=== PATIENT | female | born 1975 | race African-American/Black ===

== ENCOUNTER → 2024-06-21 | Emergency (ER) | payer OTHER ==
[~2024-06-21] VITALS: Ht 154.9 cm; Wt 50.0 kg
[~2024-06-21] MED LIST: FAMO20 PO
[2024-06-21 06:52] VITALS: TEMP 97.2
[2024-06-21] MEDS: SODIUM CHLORIDE 0.9% 1,000 ML IV ONE (07:48)
[2024-06-21] MEDS: PANTOPRAZOLE SODIUM 40 MG/VIAL IVP ONE (07:49)
[2024-06-21] MEDS: ONDANSETRON HCL 4 MG/2 ML VIAL IVP ONE (07:49)
[2024-06-21 08:09] LABS: ANION GAP 14 mmol/L (8-16); CALCIUM, TOTAL 9.2 mg/dL (8.8-10.5); CARBON DIOXIDE 26 mmol/L (22-29); CHLORIDE 97 mmol/L (98-107); CREATININE 0.78 mg/dL (0.60-1.30); GLOMERULAR FILTR. RATE CALC > 60 mL/min (>60); GLUCOSE,RANDOM 126 mg/dL (70-110); POTASSIUM 3.1 mmol/L (3.5-5.1); SODIUM SERUM 137 mmol/L (136-145); UREA NITROGEN, BLOOD 21 mg/dL (7-18)
[2024-06-21 08:14] LABS: BASOPHILS % (AUTO) 0.7 % (0.0-2.0); EOSINOPHILS % (AUTO) 0.9 % (1.0-6.0); HEMATOCRIT 40.2 % (36-46); HEMOGLOBIN 13.4 g/dL (12.0-16.0); LYMPHOCYTES # (AUTO) 1.3 K/uL (1.0-4.8); LYMPHOCYTES % (AUTO) 33.1 % (22.0-44.0); MEAN CORPUSCULAR HEMOGLOBIN 33.4 pg (26.0-34.0); MEAN CORPUSCULAR HGB CONC 33.3 G/dL (31.0-37.0); MEAN CORPUSCULAR VOLUME 100 fL (80-100); MONOCYTES # (AUTO) 0.3 K/uL (0.1-1.0); MONOCYTES % (AUTO) 6.6 % (2.0-9.0); NEUTROPHILS # (AUTO) 2.3 K/uL (1.8-7.7); NEUTROPHILS % (AUTO) 58.7 % (40.0-70.0); PLATELET COUNT (AUTO) 316 K/uL (150-450); RED CELL DISTRIBUTION WIDTH 14.7 % (11.5-14.5)
[2024-06-21 08:16] LABS: ALANINE AMINOTRANSFERASE 37 U/L (12-78); ALBUMIN 3.7 g/dL (3.4-5.0); ALKALINE PHOSPHATASE 160 U/L (46-116); ASPARTATE AMINOTRANSFERASE 80 U/L (15-37); BILIRUBIN,TOTAL 0.5 mg/dL (0.1-1.0); TOTAL PROTEIN, SERUM 7.5 g/dL (6.4-8.2)
[2024-06-21] MEDS: POTASSIUM CHLORIDE 20 MEQ ER TABLET PO ONE (08:41)
[2024-06-21] MEDS: KETOROLAC TROMETHAMINE 30 MG/ML VIAL IVP ONE (09:47)
[2024-06-21] MEDS: MAG HYDROX/ALUMINUM HYD/SIMETH ES 30 ML SUSPENSION UDCUP PO ONE (09:47)
[2024-06-21 10:00] LABS: LIPASE 81 U/L (16-77)
[2024-06-21 11:25] VITALS: BP 105/67; PULSE 84; RESP 16; O2SAT 97
== END | disposition still patient (30) ==
LOC: EMS 06:42
DX: K85.90 Acute pancreatitis without necrosis or infection, unspecified (principal)
CPT/HCPCS: 80048; 80076; 83690; 85025; 36415; 99284; 96361; 96374; 96375; J1885; J2405; C9113; J7030

== ENCOUNTER 2024-06-22 03:57 | Inpatient (IN) | payer OTHER ==
[~2024-06-22] VITALS: Ht 154.9 cm; Wt 45.5 kg
[2024-06-22] MEDS: SODIUM CHLORIDE 0.9% 1,000 ML IV ONE ×2 (04:21→09:20)
[2024-06-22] MEDS: ONDANSETRON HCL 4 MG/2 ML VIAL IVP ONE ×2 (04:21→06:56)
[2024-06-22] MEDS: KETOROLAC TROMETHAMINE 30 MG/ML VIAL IVP ONE (04:21)
[2024-06-22] MEDS: LORazepam 2 MG/ML VIAL IVP ONE (04:23)
[2024-06-22 04:27] LABS: BASOPHILS % (AUTO) 0.5 % (0.0-2.0); EOSINOPHILS % (AUTO) 0.8 % (1.0-6.0); HEMATOCRIT 43.5 % (36-46); HEMOGLOBIN 14.5 g/dL (12.0-16.0); LYMPHOCYTES # (AUTO) 1.4 K/uL (1.0-4.8); LYMPHOCYTES % (AUTO) 24.9 % (22.0-44.0); MEAN CORPUSCULAR HEMOGLOBIN 33.4 pg (26.0-34.0); MEAN CORPUSCULAR HGB CONC 33.3 G/dL (31.0-37.0); MEAN CORPUSCULAR VOLUME 100 fL (80-100); MONOCYTES # (AUTO) 0.4 K/uL (0.1-1.0); MONOCYTES % (AUTO) 6.4 % (2.0-9.0); NEUTROPHILS # (AUTO) 3.9 K/uL (1.8-7.7); NEUTROPHILS % (AUTO) 67.4 % (40.0-70.0); PLATELET COUNT (AUTO) 321 K/uL (150-450); RED BLOOD CELL COUNT(AUTO) 4.33 MIL/uL (4.00-5.20); RED CELL DISTRIBUTION WIDTH 14.5 % (11.5-14.5); WHITE BLOOD COUNT (AUTO) 5.7 K/uL (4.5-11.0)
[2024-06-22 04:38] LABS: ANION GAP 14 mmol/L (8-16); CALCIUM, TOTAL 9.1 mg/dL (8.8-10.5); CARBON DIOXIDE 24 mmol/L (22-29); CHLORIDE 98 mmol/L (98-107); CREATININE 0.58 mg/dL (0.60-1.30); GLOMERULAR FILTR. RATE CALC > 60 mL/min (>60); GLUCOSE,RANDOM 101 mg/dL (70-110); POTASSIUM 3.2 mmol/L (3.5-5.1); SODIUM SERUM 136 mmol/L (136-145); UREA NITROGEN, BLOOD 13 mg/dL (7-18)
[2024-06-22 04:42] LABS: ALCOHOL, BLOOD (SERUM) 38 mg/dL (0-10)
[2024-06-22 04:44] LABS: ALANINE AMINOTRANSFERASE 36 U/L (12-78); ALBUMIN 3.9 g/dL (3.4-5.0); ALKALINE PHOSPHATASE 153 U/L (46-116); ASPARTATE AMINOTRANSFERASE 71 U/L (15-37); BILIRUBIN,TOTAL 0.6 mg/dL (0.1-1.0); TOTAL PROTEIN, SERUM 7.6 g/dL (6.4-8.2)
[2024-06-22 04:49] LABS: TROPONIN I-HIGH SENSITIVITY 6 ng/L (<51)
[2024-06-22 04:57] LABS: LIPASE 108 U/L (16-77)
[2024-06-22] MEDS: POTASSIUM CHLORIDE 20 MEQ ER TABLET PO ONE (06:11)
[2024-06-22] MEDS: MORPHINE SULFATE 2 MG/ML SYRINGE IVP ONE (06:56)
[2024-06-22 06:57] LABS: APPEARANCE,URINE CLEAR (CLEAR); BILIRUBIN,URINE NEGATIVE (NEGATIVE); COLOR,URINE LIGHT YELLOW (YELLOW); GLUCOSE, URINE (UA) NEGATIVE (NEGATIVE); KETONES,URINE TRACE mg/dL (NEGATIVE); LEUKOCYTE ESTERASE ,URINE NEGATIVE (NEGATIVE); NITRATE,URINE NEGATIVE (NEGATIVE); OCCULT BLOOD,URINE NEGATIVE (NEGATIVE); PH,URINE 6.5 (5.0-8.0); PH,URINE DRUG SCREEN 6.5 (5.0-8.0); PROTEIN,URINE TRACE mg/dL (NEGATIVE); SPECIFIC GRAVITIY, URINE 1.029 (1.003-1.030); UROBILINOGEN,URINE <=1.0 mg/dL (<=1.0)
[2024-06-22 07:05] LABS: ALCOHOL, URINE DRUG SCREEN NEGATIVE (NEGATIVE); BARBITURATE SCREEN, URINE NEGATIVE (NEGATIVE); CANNABINOID SCREEN,URINE NEGATIVE (NEGATIVE); COCAINE SCREEN,URINE POSITIVE (NEGATIVE); METHADONE SCREEN, URINE NEGATIVE (NEGATIVE); OPIATE SCREEN,URINE NEGATIVE (NEGATIVE); PHENCYCLIDINE SCREEN,URINE NEGATIVE (NEGATIVE)
[2024-06-22 07:26] LABS: AMPHET/METH SCREEN,URINE NEGATIVE (NEGATIVE); BENZODIAZEPINES SCREEN,URINE NEGATIVE (NEGATIVE)
[2024-06-22 08:03] LABS: RBC,URINE None Seen /HPF (0-2); WBC,URINE 0-2 /HPF (0-5)
[2024-06-22 08:04] LABS: BACTERIA,URINE None Seen /HPF (None Seen); SQUAMOUS EPITHELIAL CELL,UR Few /LPF (None Seen)
[2024-06-22] MEDS ORDERED: BISACODYL 10 MG RECTAL RECTAL SUPPOSITORY PR PRN (09:00)
[2024-06-22] MEDS ORDERED: ACETAMINOPHEN 325 MG TABLET PO PRN (09:00)
[2024-06-22] MEDS: MORPHINE SULFATE 2 MG/ML SYRINGE IVP PRN ×2 (09:16→18:43)
[2024-06-22] MEDS: PANTOPRAZOLE SODIUM 40 MG DR TABLET PO SCH (09:19)
[2024-06-22] MEDS: DOCUSATE SODIUM 100 MG CAPSULE PO SCH (09:32)
[2024-06-22] MEDS: MAG HYDROX/ALUMINUM HYD/SIMETH ES 30 ML SUSPENSION UDCUP PO ONE (10:39)
[2024-06-22] MEDS: HYDROCODONE/ACETAMINOPHEN 5-325 MG TABLET PO PRN (12:22)
[2024-06-22] MEDS: LIDOCAINE 1% 10 ML VIAL SQ ONE (12:25)
[2024-06-22 16:00] VITALS: BP 159/92; PULSE 79; RESP 18; TEMP 97.8; O2SAT 100
[2024-06-22] MEDS: HEPARIN SODIUM,PORCINE 5,000 UNITS/ML VIAL SQ SCH (16:30)
[2024-06-22 20:13] VITALS: BP 164/93; PULSE 82; RESP 20; TEMP 97.9; O2SAT 100
[2024-06-22] MEDS: ChlordiazePOXIDE HCL 25 MG CAPSULE PO PRN (20:17)
[2024-06-22] MEDS: ZOLPIDEM TARTRATE 5 MG TABLET PO PRN (20:17)
[2024-06-23 03:30] VITALS: BP 154/90; PULSE 90; RESP 20; TEMP 98.3; O2SAT 100
[2024-06-23] MEDS ORDERED: ChlordiazePOXIDE HCL 25 MG CAPSULE PO PRN (07:00)
[2024-06-23] MEDS: ChlordiazePOXIDE HCL 25 MG CAPSULE PO SCH (08:41)
[2024-06-23 09:00] VITALS: BP 143/98; PULSE 98; RESP 20; TEMP 97.9; O2SAT 100
[2024-06-23 09:16] VITALS: BP 143/98; PULSE 98; RESP 20; TEMP 97.9; O2SAT 100
[2024-06-23] MEDS ORDERED: POTASSIUM CHL 10 MEQ/WATER 50 ML IV PRN (13:00)
[2024-06-23] MEDS: SODIUM CHLORIDE 0.9% 1,000 ML IV SCH (13:31)
[2024-06-23] MEDS: POTASSIUM CHLORIDE 20 MEQ ER TABLET PO PRN (13:32)
[2024-06-23 16:00] VITALS: BP 147/95; PULSE 101; RESP 20; TEMP 98.6; O2SAT 100
[2024-06-23 16:12] VITALS: BP 147/95; PULSE 101; RESP 20; TEMP 98.6; O2SAT 100
[2024-06-23 19:59] VITALS: BP 149/96; PULSE 98; RESP 18; TEMP 97.1; O2SAT 99
[2024-06-24 03:51] VITALS: BP 130/90; PULSE 98; RESP 18; TEMP 98.2; O2SAT 100
[2024-06-24 07:32] LABS: ANION GAP 10 mmol/L (8-16); CARBON DIOXIDE 24 mmol/L (22-29); CHLORIDE 99 mmol/L (98-107); CREATININE 0.49 mg/dL (0.60-1.30); GLOMERULAR FILTR. RATE CALC > 60 mL/min (>60); GLUCOSE,RANDOM 114 mg/dL (70-110); POTASSIUM 3.9 mmol/L (3.5-5.1); SODIUM SERUM 133 mmol/L (136-145); UREA NITROGEN, BLOOD 10 mg/dL (7-18)
[2024-06-24 08:00] VITALS: BP_SYST 118; BP_SYST 150; BP_DIAS 75; BP_DIAS 99; PULSE 101; PULSE 76; RESP 18; TEMP 97.7; TEMP 98; O2SAT 18
[2024-06-24 08:08] LABS: HEMATOCRIT 42.9 % (36-46); HEMOGLOBIN 13.9 g/dL (12.0-16.0); MEAN CORPUSCULAR HEMOGLOBIN 32.7 pg (26.0-34.0); MEAN CORPUSCULAR HGB CONC 32.4 G/dL (31.0-37.0); MEAN CORPUSCULAR VOLUME 101 fL (80-100); PLATELET COUNT (AUTO) 223 K/uL (150-450); RED BLOOD CELL COUNT(AUTO) 4.26 MIL/uL (4.00-5.20); RED CELL DISTRIBUTION WIDTH 13.9 % (11.5-14.5); WHITE BLOOD COUNT (AUTO) 3.9 K/uL (4.5-11.0)
[2024-06-24 08:55] LABS: BAND NEUTROPHILS % (MANUAL) 2 % (0-5); LYMPHOCYTES % (MANUAL) 19 % (22-44); MONOCYTES % (MANUAL) 9 % (2-9); SEGMENTED NEUTROPHILS % 70 % (40-70); TOTAL CELLS COUNTED 100
[2024-06-24 08:56] LABS: RBC MORPHOLOGY COMMENT ABNORMAL RBC MORPH
[2024-06-24] MEDS: AmLODIPine BESYLATE 5 MG TABLET PO SCH (13:44)
[2024-06-24 17:27] VITALS: BP 156/98; PULSE 93; RESP 19; TEMP 97.8; O2SAT 100
[2024-06-24] MEDS: CloNIDine HCL 0.1 MG TABLET PO PRN (17:41)
[2024-06-24] MEDS: ONDANSETRON HCL 4 MG/2 ML VIAL IVP PRN (18:12)
[2024-06-24 19:39] VITALS: BP 139/87; PULSE 99; RESP 18; TEMP 98.2; O2SAT 100
[2024-06-25] MEDS: MAGNESIUM HYDROXIDE SUSPENSION 30 ML UDCUP PO PRN (01:05)
[2024-06-25 04:20] VITALS: BP 150/97; PULSE 85; RESP 18; TEMP 98.2; O2SAT 100
[2024-06-25 06:54] LABS: HEMATOCRIT 37.3 % (36-46); HEMOGLOBIN 12.4 g/dL (12.0-16.0); MEAN CORPUSCULAR HEMOGLOBIN 33.3 pg (26.0-34.0); MEAN CORPUSCULAR HGB CONC 33.2 G/dL (31.0-37.0); MEAN CORPUSCULAR VOLUME 100 fL (80-100); PLATELET COUNT (AUTO) 221 K/uL (150-450); RED BLOOD CELL COUNT(AUTO) 3.72 MIL/uL (4.00-5.20)
[2024-06-25 06:56] LABS: ANION GAP 10 mmol/L (8-16); CALCIUM, TOTAL 8.4 mg/dL (8.8-10.5); CARBON DIOXIDE 28 mmol/L (22-29); CHLORIDE 96 mmol/L (98-107); CREATININE 0.41 mg/dL (0.60-1.30); GLOMERULAR FILTR. RATE CALC > 60 mL/min (>60); GLUCOSE,RANDOM 139 mg/dL (70-110); POTASSIUM 3.1 mmol/L (3.5-5.1); SODIUM SERUM 134 mmol/L (136-145); UREA NITROGEN, BLOOD 8 mg/dL (7-18)
[2024-06-25] MEDS ORDERED: ChlordiazePOXIDE HCL 10 MG CAPSULE PO PRN (07:00)
[2024-06-25 07:44] LABS: BAND NEUTROPHILS % (MANUAL) 2 % (0-5); EOSINOPHILS % (MANUAL) 2 % (1-6); LYMPHOCYTES % (MANUAL) 29 % (22-44); MONOCYTES % (MANUAL) 7 % (2-9); SEGMENTED NEUTROPHILS % 60 % (40-70); TOTAL CELLS COUNTED 100
[2024-06-25 07:45] LABS: RBC MORPHOLOGY COMMENT ABNORMAL RBC MORPH
[2024-06-25 08:23] VITALS: BP 137/88; PULSE 91; RESP 20; TEMP 98.1; O2SAT 98
[2024-06-25] MEDS: ChlordiazePOXIDE HCL 10 MG CAPSULE PO SCH (09:28)
[2024-06-25 15:37] VITALS: BP 143/85; PULSE 96; RESP 20; TEMP 98.3; O2SAT 99
[2024-06-26] MEDS ORDERED: ChlordiazePOXIDE HCL 10 MG CAPSULE PO PRN (07:00)
== END 2024-06-25 17:53 | disposition left against medical advice (07) | DRG 282 ==
LOC: EMS 03:57 → EDH 08:51 → 4E 15:05
PROVIDERS: ADMIT Internal Medicine; ATTEND Internal Medicine
DX: K85.20 Alcohol induced acute pancreatitis without necrosis or infection (principal); E44.0 Moderate protein-calorie malnutrition; E87.6 Hypokalemia; F10.129 Alcohol abuse with intoxication, unspecified; F10.139 Alcohol abuse with withdrawal, unspecified; F14.10 Cocaine abuse, uncomplicated; F19.10 Other psychoactive substance abuse, uncomplicated; Z53.29 Procedure and treatment not carried out because of patient's decision for other reasons; Z68.1 Body mass index [BMI] 19.9 or less, adult
CPT/HCPCS: 74176; 80048; 80076; 80307; 81001; 83690; 84132; 84484; 85025; 93005; 97162; 99285; G0378; G0480; J1644; J1885; J2060; J2270; J2405; J7030

== ENCOUNTER 2024-12-24 03:38 | Emergency (ER) | payer OTHER ==
[~2024-12-24] VITALS: Ht 157.5 cm; Wt 50.0 kg
[2024-12-24 04:02] VITALS: TEMP 97.8
[2024-12-24 04:33] LABS: BASOPHILS % (AUTO) 0.8 % (0.0-2.0); HEMOGLOBIN 13.6 g/dL (12.0-16.0); LYMPHOCYTES # (AUTO) 1.4 K/uL (1.0-4.8); LYMPHOCYTES % (AUTO) 40.7 % (22.0-44.0); MEAN CORPUSCULAR HEMOGLOBIN 33.5 pg (26.0-34.0); MEAN CORPUSCULAR HGB CONC 34.1 G/dL (31.0-37.0); MEAN CORPUSCULAR VOLUME 98 fL (80-100); MONOCYTES # (AUTO) 0.2 K/uL (0.1-1.0); MONOCYTES % (AUTO) 6.8 % (2.0-9.0); NEUTROPHILS # (AUTO) 1.8 K/uL (1.8-7.7); NEUTROPHILS % (AUTO) 50.7 % (40.0-70.0); PLATELET COUNT (AUTO) 294 K/uL (150-450); RED BLOOD CELL COUNT(AUTO) 4.07 MIL/uL (4.00-5.20); RED CELL DISTRIBUTION WIDTH 13.9 % (11.5-14.5); WHITE BLOOD COUNT (AUTO) 3.5 K/uL (4.5-11.0)
[2024-12-24 04:45] LABS: ALBUMIN 3.4 g/dL (3.4-5.0); BILIRUBIN,DIRECT 0.2 mg/dL (0.00-0.20); BILIRUBIN,TOTAL 0.5 mg/dL (0.1-1.0); TOTAL PROTEIN, SERUM 7.4 g/dL (6.4-8.2)
[2024-12-24 04:47] LABS: ALCOHOL, BLOOD (SERUM) 49 mg/dL (0-10); ANION GAP 10 mmol/L (8-16); CALCIUM, TOTAL 9.2 mg/dL (8.8-10.5); CARBON DIOXIDE 25 mmol/L (22-29); CHLORIDE 102 mmol/L (98-107); CREATININE 0.74 mg/dL (0.60-1.30); GLOMERULAR FILTR. RATE CALC > 60 mL/min (>60); GLUCOSE,RANDOM 81 mg/dL (70-110); LIPASE 61 U/L (16-77); SODIUM SERUM 137 mmol/L (136-145); UREA NITROGEN, BLOOD 8 mg/dL (7-18)
[2024-12-24 04:48] LABS: TROPONIN I-HIGH SENSITIVITY Less Than 4 ng/L (<51)
[2024-12-24] MEDS: MAG HYDROX/ALUMINUM HYD/SIMETH ES 30 ML SUSPENSION UDCUP PO ONE (05:38)
[2024-12-24] MEDS: FAMOTIDINE 20 MG TABLET PO ONE (05:39)
[2024-12-24] MEDS: HYDROCODONE/ACETAMINOPHEN 5-325 MG TABLET PO ONE (05:39)
[2024-12-24] MEDS: POTASSIUM CHLORIDE 20 MEQ ER TABLET PO ONE (05:39)
[2024-12-24 06:00] VITALS: BP 148/79; PULSE 88; RESP 16; O2SAT 98
[2024-12-24] MEDS ORDERED: FAMO20 PO (06:05)
[2024-12-24] MEDS ORDERED: ACET-3385 PO (06:05)
[2024-12-24] MEDS ORDERED: IBUP-1506 PO (06:05)
== END 2024-12-24 06:09 | disposition home or self-care (01) ==
LOC: EMS 03:38
DX: K29.70 Gastritis, unspecified, without bleeding (principal); F10.129 Alcohol abuse with intoxication, unspecified; E87.6 Hypokalemia; F17.210 Nicotine dependence, cigarettes, uncomplicated; F14.90 Cocaine use, unspecified, uncomplicated; R44.0 Auditory hallucinations; I10 Essential (primary) hypertension; Z87.19 Personal history of other diseases of the digestive system
CPT/HCPCS: 99284; 80048; 80076; 83690; 84484; 85025; 36415; 93005; G0480